=== PATIENT | female | born 1995 | race Caucasian/White ===

== ENCOUNTER 2016-12-06 22:40 | Inpatient (IN) | payer MEDICAID ==
[~2016-12-06] VITALS: Ht 157.5 cm; Wt 99.8 kg
[~2016-12-06 22:40] MED LIST: PRENATAL VITAMI1 T10 PO
[2016-12-06] MEDS ORDERED: LACTATED RINGERS 1,000 ML IV SCH (23:21)
[2016-12-06] MEDS ORDERED: NALBUPHINE HYDROCHLORIDE 10 MG/ML VIAL IVP PRN (23:25)
[2016-12-06] MEDS ORDERED: PROMETHAZINE 25 MG/ML VIAL IVP PRN (23:25)
[2016-12-06] MEDS ORDERED: OXYTOCIN 20 UNITS/LR PREMIX 1,000 ML IV SCH (23:25)
[2016-12-06] MEDS ORDERED: OXYTOCIN 10 UNITS/ML VIAL IM SCH (23:25)
[2016-12-07] MEDS ORDERED: OXYTOCIN 20 UNITS/LR PREMIX 1,000 ML IV ONE (01:25)
[2016-12-07 01:49] VITALS: BP 101/60
[2016-12-07] MEDS ORDERED: INFLUENZA VIRUS VACCINE QUAD 0.5 ML SYR IMVAC SCH (01:50)
[2016-12-07] MEDS ORDERED: ROPIVACAINE 0.2%/NS PREMIX 250 ML EPI ONE (02:39)
[2016-12-07] MEDS ORDERED: ROPIVACAINE 0.2%/NS PREMIX 250 ML EPI SCH (02:50)
[2016-12-07] MEDS ORDERED: PROMETHAZINE 25 MG/ML VIAL ONE (06:46)
--- NOTE | 2016-12-07 09:07 | NUR ---
PATIENT HAS BEEN SCREENED AND CATEGORIZED LOW NUTRITION RISK. PATIENT WILL BE SEEN WITHIN 7 DAYS OF ADMISSION. 12/13/[address]
[2016-12-07] MEDS ORDERED: OXYTOCIN 10 UNITS/ML VIAL ONE (09:15)
[2016-12-07] MEDS ORDERED: IBUPROFEN 800 MG TAB PO PRN (12:50)
[2016-12-07] MEDS ORDERED: MEASLES, MUMPS, AND RUBELLA 1 VIAL SQVAC PRN (12:50)
[2016-12-07] MEDS ORDERED: HYDROcodone/APAP 5/325 MG 1 TAB TAB PO PRN (12:50)
[2016-12-07] MEDS ORDERED: oxyCODONE/APAP 5/325 MG 1 TAB TAB PO PRN (12:50)
[2016-12-07] MEDS ORDERED: WITCH HAZEL 40 PAD PACKAGE TP PRN (12:50)
[2016-12-07] MEDS ORDERED: TEMAZEPAM 15 MG CAP PO PRN (12:50)
[2016-12-07] MEDS ORDERED: SODIUM PHOSPHATE 118 ML ENEM RC PRN (12:50)
[2016-12-07] MEDS ORDERED: BENZOCAINE/MENTHOL 20%-0.5% 60 GM CAN TP PRN (12:50)
[2016-12-07] MEDS ORDERED: DOCUSATE SOD/SENNA 50/8.6 MG 1 TAB PO SCH (21:00)
== END 2016-12-08 14:40 | disposition home or self-care (01) | DRG 560 ==
LOC: OBSVTOIN 22:40 → MLD 22:40 → MFCC 12-07 15:05
PROVIDERS: ADMIT Obstetrics & Gynecology; ATTEND Obstetrics & Gynecology
PROC: 10E0XZZ Delivery of Products of Conception, External Approach (ICD-10-PCS; principal; 2016-12-07)
PROC: 10907ZC Drainage of Amniotic Fluid, Therapeutic from Products of Conception, Via Natural or Artificial Opening (ICD-10-PCS; 2016-12-07)
PROC: 00HU33Z Insertion of Infusion Device into Spinal Canal, Percutaneous Approach (ICD-10-PCS; 2016-12-07)
PROC: 3E0R3CZ (ICD-10-PCS; 2016-12-07)
DX: O69.81X0 Labor and delivery complicated by cord around neck, without compression, not applicable or unspecified (principal); Z37.0 Single live birth; Z28.21 Immunization not carried out because of patient refusal; Z3A.38 38 weeks gestation of pregnancy

== ENCOUNTER 2019-05-18 14:26 | Observation (INO) | payer MEDICAID ==
[~2019-05-18] VITALS: Ht 157.5 cm; Wt 85.0 kg
[~2019-05-18 14:26] MED LIST changes: +PREN-385 PO; -PRENATAL VITAMI1 T10 PO
[2019-05-18 14:34] VITALS: BP 100/61
--- NOTE | 2019-05-18 14:44 | NUR ---
[facility] EMT TOOK PT TO L&D, CALLED L&D TO NOTIFY THEM PATIENT IS ON THE WAY, THEY STATED THEY DID NOT KNOW WHAT ROOM SHE WOULD BE GOING TO.
--- NOTE | 2019-05-18 14:49 | NUR ---
PER EMT OBDULIO PT WENT TO ROOM 5A
[2019-05-18 15:05] VITALS: BP 104/55
[2019-05-18 16:19] LABS: BILIRUBIN,URINE NEGATIVE (NEGATIVE); BLOOD, URINE NEGATIVE (NEGATIVE); COLOR,URINE YELLOW (YELLOW); LEUKOCYTE ESTERASE ,URINE 2+ (NEGATIVE); NITRITE, URINE NEGATIVE (NEGATIVE); PH,URINE 5.5 (5.0-9.0); UGLUCOSE NEGATIVE (NEGATIVE)
[2019-05-18 16:26] LABS: APPEARANCE,URINE HAZY (CLEAR)
[2019-05-18] MEDS ORDERED: NITR100C7 PO ×2 (16:31→16:32)
[2019-05-18 16:51] LABS: RBC,URINE NONE SEEN /HPF (0-5)
== END 2019-05-18 17:05 | disposition home or self-care (01) ==
LOC: MED 14:26 → MLD 14:53 → MED 15:22 → MLD 15:22
PROVIDERS: ADMIT Obstetrics & Gynecology; ATTEND Obstetrics & Gynecology
DX: O26.892 Other specified pregnancy related conditions, second trimester (principal); R10.13 Epigastric pain; R11.0 Nausea; Z3A.20 20 weeks gestation of pregnancy
CPT/HCPCS: 81001; 87086; 99281; G0378

== ENCOUNTER 2019-09-26 13:36 | Inpatient (IN) | payer OTHER ==
[~2019-09-26] VITALS: Ht 152.4 cm; Wt 97.5 kg
[~2019-09-26 13:36] MED LIST changes: +NITR100C7 PO
[2019-09-26] MEDS ORDERED: LACTATED RINGERS 1,000 ML IV SCH (14:49)
[2019-09-26] MEDS ORDERED: CARBOPROST 250 MCG/ML AMP IM PRN (14:50)
[2019-09-26] MEDS ORDERED: NALBUPHINE 10 MG/ML AMP IVP PRN (14:50)
[2019-09-26] MEDS ORDERED: METHYLERGONOVINE 0.2 MG/ML AMP IM PRN (14:50)
[2019-09-26] MEDS ORDERED: PROMETHAZINE 25 MG/ML VIAL IVP PRN (14:50)
[2019-09-26 15:00] VITALS: BP 93/52
[2019-09-26] MEDS ORDERED: MISOPROSTOL 25 MCG TAB ONE (15:31)
[2019-09-26 15:43] LABS: BASOPHILS % (AUTO) 0.1 % (0.0-2.0); EOSINOPHILS % (AUTO) 0.4 % (0.0-4.0); HEMATOCRIT 38.2 % (36-48); HEMOGLOBIN 12.6 g/dL (12.0-16.0); LYMPHOCYTES # (AUTO) 1.2 K/uL (2.5-16.5); LYMPHOCYTES % (AUTO) 10.8 % (20.5-51.1); MEAN CORPUSCULAR HEMOGLOBIN 30 pg (27-31); MEAN CORPUSCULAR HGB CONC 33 g/dL (33-37); MEAN CORPUSCULAR VOLUME 89.4 fL (80-94); MONOCYTES # (AUTO) 0.8 K/uL (0.8-1.0); MONOCYTES % (AUTO) 7.4 % (1.7-9.3); NEUTROPHILS # (AUTO) 8.9 K/uL (1.8-7.7); NEUTROPHILS % (AUTO) 81.3 % (42.2-75.2); PLATELET COUNT (AUTO) 202 K/uL (140-450); RED BLOOD CELL COUNT(AUTO) 4.27 MIL/uL (4.20-5.40); WHITE BLOOD COUNT (AUTO) 10.9 K/uL (4.8-10.8)
[2019-09-26 15:56] LABS: APPEARANCE,URINE CLEAR (CLEAR); BILIRUBIN,URINE NEGATIVE (NEGATIVE); BLOOD, URINE NEGATIVE (NEGATIVE); COLOR,URINE YELLOW (YELLOW); LEUKOCYTE ESTERASE ,URINE 3+ (NEGATIVE); NITRITE, URINE NEGATIVE (NEGATIVE); PH,URINE 6.5 (5.0-9.0); UGLUCOSE NEGATIVE (NEGATIVE)
[2019-09-26] MEDS ORDERED: MISOPROSTOL 200 MCG TAB VG SCH ×2 (16:00→18:00)
[2019-09-26] MEDS ORDERED: MISOPROSTOL 25 MCG TAB VG SCH (16:00)
[2019-09-26 16:03] LABS: ANION GAP 14.8 (8-16); CARBON DIOXIDE 23.9 mmol/L (21-32); CREATININE 0.4 mg/dL (0.6-1.3); POTASSIUM 3.7 mmol/L (3.5-5.1)
[2019-09-26 16:08] LABS: ALBUMIN 2.5 g/dL (3.4-5.0); TOTAL BILIRUBIN 0.2 mg/dL (0.0-1.0)
[2019-09-26 16:28] LABS: RBC,URINE NONE SEEN /HPF (0-5)
[2019-09-27] MEDS ORDERED: ROPIVACAINE 0.2%/NS PREMIX 100 ML EPI ONE (03:28)
[2019-09-27] MEDS ORDERED: OXYTOCIN 20 UNITS/LR PREMIX 1,000 ML IV ONE (05:14)
[2019-09-27] MEDS ORDERED: MEASLES, MUMPS, AND RUBELLA 1 VIAL SQVAC PRN (05:45)
[2019-09-27] MEDS ORDERED: METHYLERGONOVINE 0.2 MG/ML AMP IM PRN (05:45)
[2019-09-27] MEDS ORDERED: OXYTOCIN 10 UNITS/ML VIAL IM PRN (05:45)
[2019-09-27] MEDS ORDERED: METHYLERGONOVINE 0.2 MG TAB PO PRN (05:45)
[2019-09-27] MEDS ORDERED: BENZOCAINE/MENTHOL 20%-0.5% 60 GM CAN TP PRN (05:45)
[2019-09-27] MEDS: IBUPROFEN 800 MG TAB PO PRN (15:11)
[2019-09-28] MEDS ORDERED: INFLUENZA VACCINE QUAD 0.5 ML SYR IMVAC PRN (04:40)
[2019-09-28] MEDS: IBUPROFEN 800 MG TAB PO PRN (05:45)
--- NOTE | 2019-09-28 08:09 | NUR ---
PATIENT HAS BEEN SCREENED AND CATEGORIZED LOW NUTRITION RISK. PATIENT WILL BE SEEN WITHIN 7 DAYS OF ADMISSION. 10/03/[address]
[2019-09-28 10:52] LABS: HEMATOCRIT 38.8 % (36-48); HEMOGLOBIN 12.8 g/dL (12.0-16.0)
== END 2019-09-29 11:10 | disposition home or self-care (01) | DRG 560 ==
LOC: MLD 13:36 → MFCC 09-27 09:35
PROVIDERS: ADMIT Obstetrics & Gynecology; ATTEND Obstetrics & Gynecology
PROC: 10E0XZZ Delivery of Products of Conception, External Approach (ICD-10-PCS; principal; 2019-09-27)
PROC: 3E0P7VZ Introduction of Hormone into Female Reproductive, Via Natural or Artificial Opening (ICD-10-PCS; 2019-09-27)
PROC: 0HQ9XZZ Repair Perineum Skin, External Approach (ICD-10-PCS; 2019-09-27)
PROC: 00HU33Z Insertion of Infusion Device into Spinal Canal, Percutaneous Approach (ICD-10-PCS; 2019-09-27)
PROC: 3E0R3BZ Introduction of Anesthetic Agent into Spinal Canal, Percutaneous Approach (ICD-10-PCS; 2019-09-27)
DX: O36.5930 Maternal care for other known or suspected poor fetal growth, third trimester, not applicable or unspecified (principal); O69.1XX0 Labor and delivery complicated by cord around neck, with compression, not applicable or unspecified; O99.214 Obesity complicating childbirth; O70.0 First degree perineal laceration during delivery; Z37.0 Single live birth; Z3A.39 39 weeks gestation of pregnancy
CPT/HCPCS: 36415; 51702; 59200; 59409; 76815; 80053; 81001; 85018; 85025; 86592; 86886; 86900; 86901; 87086; 90715; J2300; J2550; J2590; J2795; J7120; Q0092